=== PATIENT | female | born 1960 | race African-American/Black ===

== ENCOUNTER 2018-07-12 09:06 | Emergency (ER) | payer OTHER ==
[~2018-07-12] VITALS: Ht 167.6 cm; Wt 53.0 kg
[2018-07-12] MEDS ORDERED: DICL25TA2 PO (09:41)
[2018-07-12 12:48] VITALS: BP 144/82
== END 2018-07-12 12:50 | disposition home or self-care (01) ==
LOC: ER 09:06
DX: M06.9 Rheumatoid arthritis, unspecified (principal); Z98.890 Other specified postprocedural states
CPT/HCPCS: 99281